=== PATIENT | male | born 2000 | race Caucasian/White ===

== ENCOUNTER 2020-11-19 17:20 | Emergency (ER) | payer BC, OTHER ==
[~2020-11-19] VITALS: Ht 180 cm; Wt 72.0 kg
[2020-11-19] MEDS ORDERED: ORPHENADRINE 60 MG/2 ML (NORFLEX) AMP (ED ONLY) IM STA (17:52)
[2020-11-19] MEDS ORDERED: KETOROLAC 60 MG/2 ML VIAL IM STA (17:52)
--- NOTE | 2020-11-19 18:04 | ED Back Pain ---
General Chief Complaint: Back Problems Stated Complaint: CP/SOB Nursing Triage Note: ARRIVED VIA AMB TO [facility]. STATES HE WAS ON HIS COUCH AND TURNED AROUND AND FELT A POP IN HIS BACK AND IS HAVING RIGHT SIDED BACK PAIN BETWEEN HIS SHOULDER BLADES THAT WRAPS AROUND TO HIS EPIGASTRIC REGION. STATES THIS HAPPENED ABOUT ONE WEEK AGO AND HAS SEEN A CHIROPRACTER FOR IT. PT STATES HE TOOK X2 MOTRIN 200MG LEATHER SCRUBBER. Nursing Sepsis Screen: No Definite Risk Source of Information: Patient Exam Limitations: No Limitations History of Present Illness Date Seen by Provider: Nov 19, 2020 Time Seen by Provider: 17:35 Initial Comments Here with report of right sided back pain between the shoulder blade and spine. Onset a week ago when he turned and he felt a pop. Pain has persisted since. He went to the chiropractor which helped a little bit but it came back worse tonight. He did take 2 ibuprofen which did not help. Denies any injury otherwise and never had anything like this before. States he feels spasms that go all the way around his chest and take his breath away occasionally. Denies breathing problems otherwise. Location: Paraspinous Muscles Timing/Duration: 1 Week Severity: Moderate Pain/Injury Location: Back Radiation: Other (Right chest wall) Method of Injury: Other (Twisting) Modifying Factors: Improves With Immobilization; Worse With Movement Associated Symptoms: muscle spasms; No weakness, No numbness in legs/feet, No sensory/motor loss, No lower back pain, No loss of bladder control, No loss of bowel control Allergies and Home Medications Allergies Coded Allergies: No Known Drug Allergies (Unverified , 11/19/20) Home Medications No Active Prescriptions or Reported Meds Patient Home Medication List Home Medication List Reviewed: Yes Review of Systems Constitutional: see HPI; No chills, No fever Respiratory: no symptoms reported Cardiovascular: no symptoms reported Musculoskeletal: see HPI, back pain, muscle pain, muscle stiffness, muscle cramps Skin: no symptoms reported Psychiatric/Neurological: See HPI Past [id number]-[id number] Hx Past Med/Social Hx: Reviewed Nursing Past Med/Soc Hx Patient Social History Alcohol Use: Occasionally Uses Smoking Status: Never a Smoker Recent Infectious Disease Expo: No Recent Hopitalizations: No Past Medical History Surgeries: No Respiratory: No Cardiac: No Neurological: No Genitourinary: No Gastrointestinal: No Musculoskeletal: No Endocrine: No HEENT: No Cancer: No Psychosocial: No Integumentary: No Family Medical History Reviewed Nursing Family Hx Physical Exam Vital Signs Vital Signs - First Documented 11/19/20 17:25 Temp 34.4 Pulse 81 Resp 16 B/P (MAP) 143/95 (111) Pulse Ox 98 O2 Delivery Room Air Capillary Refill : Less Than 3 Seconds Height, Weight, BMI Height: '" Weight: lbs. oz. kg; 22.00 BMI Method: General Appearance: No Apparent Distress, WD/WN Neck: Non Tender, Supple Cardiovascular: Regular Rate, Rhythm, No Murmur Respiratory: Lungs Clear, Normal Breath Sounds Back: No CVA Tenderness, No Vertebral Tenderness, Muscle Spasm (Right paraspinous muscles between the shoulder blade and spine noted to be spasming with movement and touch.) Neurologic/Psychiatric: Alert, Oriented x3 Skin: Normal Color, Warm/Dry Progress/Results/Core Measures Results/Orders My Orders Orders - MAXWELL CRAWFORD MD Ketorolac Injection (Toradol Injection) (11/19/20 17:52) Orphenadrine Inj (Ed Only) (Norflex Inje (11/19/20 17:52) Vital Signs/I&O 11/19/20 17:25 Temp 34.4 Pulse 81 Resp 16 B/P (MAP) 143/95 (111) Pulse Ox 98 O2 Delivery Room Air Blood Pressure Mean: 111 Progress Progress Note : Progress Note Seen and evaluated. Muscle spasms noted in the back. We did try to reduce spasms through manipulation and pressure point release. Patient states this h elped a little bit but did not have significant change. We talked with patient and his mother regarding therapy. We will give Toradol 60 mg IM and Norflex 60 mg IM. Patient will continue with outpatient therapy for likely muscle spasms and will also follow-up with her chiropractor again tomorrow. Discharged home with return precautions. Patient verbalized understanding of instructions and agreement with plan. Departure Impression Primary Impression: Rhomboid muscle strain Qualified Codes: S29.012A - Strain of muscle and tendon of back wall of zuly self, initial encounter Disposition: HOME, SELF-CARE Condition: Stable Departure-Patient Inst. Decision time for Depature: 18:18 Referrals: NO,LOCAL PHYSICIAN (PCP/Family) Primary Care Physician Patient Instructions: Back Muscle Strain (DC) Add. Discharge Instructions: All discharge instructions reviewed with patient and/or family. Voiced understanding. You may take ibuprofen 600 mg every 8 hours as needed for pain. You may also take Tylenol/acetaminophen 1000 mg every 8 hours as needed for pain. You may use [id number] Icy Hot with lidocaine patches, Aspercreme with lidocaine patches, Salonpas with lidocaine patches or similar items to area of concern per package directions. Keep appointment with your chiropractor tomorrow. Return for worse pain, weakness, breathing problems or other concerns as needed. Scripts No Active Prescriptions or Reported Meds MAXWELL CRAWFORD MD Nov 19, 2020 18:04
[2020-11-19] MEDS ORDERED: CYCL10TA9 PO (18:20)
[2020-11-19 18:21] VITALS: BP 143/95
== END 2020-11-19 18:21 | disposition home or self-care (01) ==
LOC: ER 17:21
DX: S29.012A Strain of muscle and tendon of back wall of thorax, initial encounter (principal); X50.1XXA Overexertion from prolonged static or awkward postures, initial encounter
CPT/HCPCS: 99284